=== PATIENT | female | born 1970 | race Caucasian/White ===

== ENCOUNTER 2018-06-02 06:24 | Observation (INO) ==
--- NOTE | 2018-05-13 11:58 | Anesthesiology Consultation ---
Date of Service May 13, 2018 Assessment & Plan (1) Encounter for pre-operative examination: *BASED ON EXAM AT [facility], LIKELY VERY DIFFICULT INTUBATION. PT CAN OPEN MOUTH TO ONLY ~2-3 CM BETWEEN UPPER AND LOWER TEETH. PT TO F/U WITH ORAL SURGEON ON 05/28. REEVALUATE TRISMUS AM DOS* *PT TO HAVE ROOT CANAL PRIOR TO SURGERY ON PREVIOUSLY ABSCESSED TOOTH. SURGEON AWARE AND OK TO PROCEED.* Chart Review Chart Review: Acceptable Risk for Surgery and Patient seen in Pre Admission Testing Teaching & Discussion Instructed NPO after midnight before surgery, except medications with 15 cc of water. Medication instructions provided according to the [facility] guidelines. History Surgery Operation Date: 06/02/18 07:30 Proposed Procedures p Robotic Total Laparoscopic Hysterectomy - Adela Turner MD, FACOG Height/Weight Height: 5 ft 6 in Weight: 72.5 kg Allergies Allergy/AdvReac Type Severity Reaction Status Date / Time No Known Allergies Allergy Unknown Verified 05/08/18 11:50 Dust Allergy Mild Uncoded 05/08/18 11:50 Medications Home Medications Medication Instructions Recorded Confirmed Last Taken levothyroxine [Synthroid] 125 mcg PO QAM 05/08/18 05/08/18 Unknown multivitamin with iron 1 tab PO QAM 05/08/18 05/08/18 Unknown venlafaxine [Effexor XR] 75 mg PO QAM 05/08/18 05/08/18 Unknown Past Medical History Medical History Palpitations (Acute) 2014 Holter Monitor by PCP showed "dominant rhythm is sinus rhythm with intermittent bigeminy and trigeminy. Frequent PVCs, representing 7% of all QRS complexes." Patient subsequently evaluated by cardiology and given the scarcity of her symptoms elected to forgo any treatment at the time. Abnormal liver function tests CHRONIC; REASON UNK Anxiety Asthma DOES NOT USE INH Depression History of abscessed tooth 2/2 ROOT CANAL. TREATED W/ ABX AND I+D PROCEDURE 04/30/2018. PERSISTENT TRISMUS. Hypothyroidism Iron deficiency anemia Has been following with PCP, on ferrous sulfate and had IV Fe infusion, having heavy vaginal bleeding. Leukopenia PCP aware and monitoring PVCs (premature ventricular contractions) Frequent, with intermittent bi and trigeminy, per 2014 Holter. Pt has only occasional palpitations. Temporomandibular joint disorder Pt had root canal and subsequent dental abscess over the past couple weeks--since having abscess drained can barely open her mouth. Pt is to return to oral surgeon on 05/28, will discuss muscle relaxer or therapeutic intervention at that time if not improved. Uterine fibroid Varicose vein of leg Past Surgical History Surgical History History of History of colonoscopy History of esophagogastroduodenoscopy (EGD) History of tooth extraction History of tubal ligation Past Anesthesia History No Hx of Anesthesia Complications and No Family Hx of Anesthesia Complications History of PONV No Motion Sickness Screening History of Motion Sickness: No Social History Smoking Status: Former smoker Do You Dip or Chew Tobacco: No Smoking End Date: QUIT > 20 YEARS AGO Hx Alcohol Use: Yes Alcohol type: beer and wine Alcohol Intake Frequency Comment: ONCE PER MONTH Hx Substance Use: No substance use type: does not use Exercise / Class Metabolic Activity II 4-5 Yardwork/Stairs/Walk up hill (denies CP or SOB with stairs) Review of Systems Pt denies any recent chest pain, shortness of breath, palpitations, cough, fever or URI. +abscessed tooth from root canal, was on Clindamycin x 10 days, still has significant jaw pain and cannot open mouth fully. Physical Exam Vital Signs BP: 101/65 P: 61bpm SPO2: 99% RA T: 98.7 F R: 12 ENMT Mouth: + small oral opening (VERY narrow opening 2/2 trismus); no dental restorations, no chipped teeth and no loose teeth Thyromental Distance: < 3.5 Finger Breadths (2) Mallampati Class: III Neck + shortened thyromental distance; neck extension not limited Respiratory normal respiratory effort Auscultation: lungs clear to auscultation bilaterally Cardiovascular Rate/Rhythm: regular rate; + abnormal rhythm (ectopic beats vs sinus arrhythmia?) Heart Sounds: no murmur Extremities: no edema Testing Electrocardiogram Date: 05/13/18 Findings: + NSR @ (63, with frequent PVCs.) Right axis deviation. Possible anterior infarct, age undetermined. *pt does have large pendulous breasts possibly interfering with EKG tracing. Good functional status, no cardiopulmonary complaints. Laboratory Results 05/13/18 12:13 05/13/18 12:13 Blood Type O Negative 05/13/18 12:13 Antibody Screen NEGATIVE 05/13/18 12:13
--- NOTE | 2018-05-13 12:09 | PAT Medication Instructions ---
Medication Instructions Date of Service May 13, 2018 Home Medications levothyroxine [Synthroid] 125 mcg PO QAM multivitamin with iron 1 tab PO QAM venlafaxine [Effexor XR] 75 mg PO QAM DO NOT take the morning of surgery multivitamin with iron 1 tab PO QAM Take morning of surgery With a small sip of water, OTHERWISE NOTHING TO EAT OR DRINK AFTER MIDNIGHT: levothyroxine [Synthroid] 125 mcg PO QAM venlafaxine [Effexor XR] 75 mg PO QAM Other Notes If you have any questions please call us at [phone] or [phone] or [phone] or [phone]
[2018-05-13 12:48] LABS: Basophils # (auto) 0.01 K/uL (0-0.2); Basophils % (auto) 0.4 %; Hematocrit (blood only) 29.7 % (37-47); Hemoglobin 9.6 g/dL (12.0-16.0); Lymphocytes # (auto) 1.02 K/uL (1.2-3.4); Lymphocytes % (auto) 44.3 %; Mean Corpuscular Hgb Conc 32.3 g/dL (32-36); Mean Corpuscular Volume 86.6 fL (80-100); Mean Platelet Volume 10.4 fL (7.4-10.4); Monocytes # (auto) 0.24 K/uL (0.11-0.59); Monocytes % (auto) 10.4 %; Neutrophils # (auto) 1.03 K/uL (1.4-6.5); Neutrophils % (auto) 44.9 %; Platelet Count 211 K/uL (130-400); RDW Coefficient of Variation 17.2 % (11.5-14.5); RDW Standard Deviation 54.5 fL (36.4-46.3); Red Blood Count 3.43 M/uL (4.2-5.4)
[2018-05-13 13:33] LABS: Calcium 8.7 mg/dl (8.5-10.1); Creatinine Clr Calc Pharmacy 104.3 ml/min; Est GFR (African American) 120.7; Est GFR (Non-African American) 104.2
[~2018-06-02 06:24] MED LIST: CEFAZOLIN 2000MG 2,000 MG/15 ML SYR IV SCH; LACTATED RINGER'S 1,000 ML IV SCH; LR 15ML/HR IV SCH; LR 500ML BOLUS, THEN 15ML/HR IV SCH
[2018-06-02] MEDS ORDERED: BUPIVACAINE 0.5 % 5 MG/1 ML MPF 30ML VIAL ONE (07:00)
[2018-06-02] MEDS ORDERED: CISATRACURIUM BESYLATE IV SOLN 2 MG/ML 10 ML VIAL IV ONE (07:02)
[2018-06-02] MEDS ORDERED: LARYING-O-JET KIT (LTA) ONE (07:02)
[2018-06-02] MEDS ORDERED: LIDOCAINE HCL 2% 2 ML VIAL/AMP(20MG/ML) INFIL ONE (07:02)
[2018-06-02] MEDS ORDERED: ePHEDrine sulfate 50 MG/ML SYR ONE (07:02)
[2018-06-02] MEDS ORDERED: GLYCOPYRROLATE 0.2 MG/ML VIAL ONE (07:02)
[2018-06-02] MEDS ORDERED: PHENYLEPHRINE 100MCG/ML 5ML SYR ONE (07:02)
[2018-06-02] MEDS ORDERED: ONDANSETRON INJ 2 MG/ML 2 ML VIAL ONE (07:02)
[2018-06-02] MEDS ORDERED: PROPOFOL IV EMULSION 10 MG/ML 20 ML VIAL IV ONE (07:02)
[2018-06-02] MEDS ORDERED: NEOSTIGMINE METHYLSULFATE 5 MG/5 ML SYR ONE (07:02)
[2018-06-02] MEDS ORDERED: DEXAMETHASONE SOD INJ 4 MG/ML VIAL ONE (07:02)
[2018-06-02] MEDS ORDERED: fentaNYL citrate 100 MCG/2 ML VIAL ONE (07:03)
[2018-06-02] MEDS ORDERED: MIDAZOLAM HCL 1 MG/ML 2ML VIAL ONE (07:03)
--- NOTE | 2018-06-02 07:04 | History & Physical Bridge Note ---
Date of Service June 02, 2018 History & Physical Bridge Note I have examined the patient, reviewed the History & Physical and in the interval since the performance of the History & Physical I have noted the following changes of clinical significance: no changes noted
[2018-06-02] MEDS ORDERED: KETOROLAC 30 MG/ML VIAL ONE (08:17)
[2018-06-02] MEDS ORDERED: ATROPINE SULFATE 0.1 MG/ML 10ML SYR IV PRN (09:06)
[2018-06-02] MEDS ORDERED: ONDANSETRON INJ 2 MG/ML 2 ML VIAL IV PRN ×2 (09:06→09:42)
[2018-06-02] MEDS ORDERED: FLUMAZENIL 0.1 MG/1 ML 10 ML VIAL IV PRN (09:06)
[2018-06-02] MEDS ORDERED: PROMETHAZINE HCL 12.5 MG in SODIUM CHLORIDE 0.9% 50 ML IV PRN ×2 (09:06→09:42)
[2018-06-02] MEDS ORDERED: ePHEDrine sulfate 50 MG/ML AMP IV PRN (09:06)
[2018-06-02] MEDS ORDERED: NALOXONE HCL 0.4 MG/1 ML VIAL/CARP IV PRN (09:06)
[2018-06-02] MEDS ORDERED: HYDROmorphone INJ 1 MG/ML SYRINGE IV PRN (09:06)
[2018-06-02] MEDS ORDERED: LABETALOL HCL IV 5 MG/ML 20ML IV PRN (09:06)
[2018-06-02] MEDS: METHYLENE BLUE 0.5% 10 ML VIAL ONE ×2 (09:08→09:12)
[2018-06-02] MEDS ORDERED: TISSEEL FIBRIN SEALANT 4ML TOP ONE (09:26)
[2018-06-02] MEDS ORDERED: ACETAMINOPHEN 325 MG TAB PO PRN (09:42)
[2018-06-02] MEDS ORDERED: ZOLPIDEM TARTRATE 5 MG TAB PO PRN (09:42)
[2018-06-02] MEDS ORDERED: KETOROLAC 30 MG/ML VIAL IV PRN (09:42)
[2018-06-02] MEDS ORDERED: MEPERIDINE HCL 50 MG/ML CARP IV PRN (09:42)
[2018-06-02] MEDS ORDERED: BISACODYL 10 MG SUPP PR PRN (09:42)
[2018-06-02] MEDS ORDERED: OXYCODONE/ACETAMINOPHEN 5mg/325mg TAB PO PRN ×2 (09:42)
[2018-06-02] MEDS ORDERED: MAGNESIUM HYDROXIDE SUSP 30 ML UDC PO PRN (09:42)
--- NOTE | 2018-06-02 09:49 | Post Operative Brief Note ---
Immediate Post Op Note v1 Date of Surgery June 02, 2018 Pre & Post Diagnosis Operation Date: 06/02/18 07:30 Pre-Op Diagnosis: Menorrhagia, Abnormal Menses Post-Op Diagnosis: Menorrhagia, Abnormal Menses Procedure Operation Date: 06/02/18 07:30 Actual Procedures p Robotic Total Laparoscopic Hysterectomy, Bilateral Salpingectomy, Cystoscopy - Adela Turner MD, FACOG Surgeon Adela Turner MD, FACOG Blue Line Trimmer Yamila Estimated Blood Loss 20 Findings Consistent with Post-Op Diagnosis Drains Carlin Catheter (Inserted during procedure by Dr. Turner.)
--- NOTE | 2018-06-02 10:27 | Operative Report ---
Post Operative Report Pre & Post Diagnosis Operation Date: 06/02/18 07:30 Pre-Op Diagnosis: Menorrhagia, Abnormal Menses Post-Op Diagnosis: Menorrhagia, Abnormal Menses Procedure Operation Date: 06/02/18 07:30 Actual Procedures p Robotic Total Laparoscopic Hysterectomy, Bilateral Salpingectomy, Cystoscopy - Adela Turner MD, FACOG Surgeon Adela Turner MD, FACOG Jewel Bearing Broacher Yamila Estimated Blood Loss 20 Findings Consistent with Post-Op Diagnosis Specimens Uterus cervix bilateral fallopian tubes Description of Procedure Patient was given a general anesthetic prepped and draped in dorsal lithotomy position in [facility] stir[facility] bladder drained with Carlin catheter V care inserted into her cervix glove change and a supraumbilical incision made with scalpel using Dallas technique we did a direct cutdown into the peritoneal cavity there were some adhesions around the umbilicus I was able to get a a 12 mm Dallas port blunt into the umbilicus at that stage it was then able to placed a 8mm Port on the left side. I was also able to place the 11 mm millimeters blade less port on the left side using the harmonic scalpel was able to lyse the adhesions. At this stage II ports were then placed on the right side robotic. We then were able to dock the robot after deep Trendelenburg position Findings adhesions at the bladder flap as expected some adhesions of the omentum to the uterus and left adnexa otherwise normal anatomy with an enlarged uterus Robot was docked on #1 was monopolar kimmie in arm #2 was the bipolar [place] arm #3 was the pro-grasp procedure was begun by manipulating the uterus with the V care identifying adhesions on the uterus and left side these were lysed away ureter was identified on the left side and then we made coagulation distal to the ovary with the bipolar [place] this was then cut with monopolar kimmie round ligament was coagulated and cut as well uterine vessels skeletonized bladd er flap was sharply dissected away and then was able to coagulate and cut the uterine vessels on the left side we were well away from the left ureter The exact same process was continued on the right side once both uterine vessels were ligated and cut I made an anterior colpotomy and then completed the colpotomy with the monopolar kimmie uterus was then pulled into the vagina to maintain pneumoperitoneum Instruments were exchanged for #1 became the negative needle commercial collections driver arm #2 became the Apparity grasper 12 inch 2 oh 90-day V lock suture passed to the accessory port cuff was closed from left to right back right to left taking at least 1 cm full-thickness bites suture was cut to the was no tail need to remove the excess report after generous irrigation and suction there was no active bleeding 4 mL of Tisseel applied to the pedicles. Cystoscopy was performed initially without methylene blue I was able to see a ureter jet on the left side we then actually had to add methylene blue as I was unable to see on the right once at methylene blue was given intravenously was easy to see a good strong [place] blue dye from the right ureter opening no damage to the bladder no sutures visualized cystoscope removed and a new Carlin catheter placed uterus had been removed from the vagina already at this stage and instrument removed the robot undocked gas allowed to escape and incisions injected with 0.5% Marcaine fascia closed with 0 Vicryl in the umbilical and left upper quadrant incisions 4 oh septic or Monocryl and Dermabond sponge and inspect counts correct I attest to the content of the Intraoperative Record and any orders documented therein. Any exceptions are noted below.
--- NOTE | 2018-06-02 10:38 | Anesthesiology Progress Note ---
Date of Service June 02, 2018 Anesthesia Post Procedure Vital Signs Vital Signs: Temp Pulse Pulse Resp BP BP Pulse Ox 06/02/18 10:30 36.1 C L 69 18 114/63 97 06/02/18 10:20 78 18 119/77 100 06/02/18 10:10 79 15 111/80 100 06/02/18 10:00 70 20 111/68 100 06/02/18 09:51 36.0 C L 97 H 14 119/78 100 06/02/18 06:37 36.4 C L 74 16 106/73 100 Pain Intensity Abdomen: Pain Intensity: 2 Notes Mental Status: alert / awake / arousable Patient Amnestic to Procedure: Yes Nausea / Vomiting: adequately controlled Pain: adequately controlled Airway Patency, RR, SpO2: stable & adequate BP & HR: stable & adequate Hydration State: stable & adequate Anesthetic Complications: no major complications apparent
[2018-06-02] MEDS: LACTATED RINGER'S 1,000 ML IV SCH (11:14)
[2018-06-02] MEDS ORDERED: SIMETHICONE 80 MG CHEW PO PRN (11:15)
[2018-06-02] MEDS: IBUPROFEN 600 MG TAB PO PRN (19:15)
[2018-06-02 20:40] LABS: Hematocrit (blood only) 24.8 % (37-47); Hemoglobin 8.1 g/dL (12.0-16.0)
[2018-06-02] MEDS: DOCUSATE SODIUM 100 MG CAP PO SCH (21:02)
[2018-06-03] MEDS: IBUPROFEN 600 MG TAB PO PRN ×2 (01:56→07:29)
[2018-06-03] MEDS: LACTATED RINGER'S 1,000 ML IV SCH (04:24)
[2018-06-03 06:52] LABS: Basophils # (auto) 0.01 K/uL (0-0.2); Basophils % (auto) 0.2 %; Hematocrit (blood only) 22.6 % (37-47); Hemoglobin 7.4 g/dL (12.0-16.0); Lymphocytes # (auto) 1.23 K/uL (1.2-3.4); Lymphocytes % (auto) 26.3 %; Mean Corpuscular Hgb Conc 32.7 g/dL (32-36); Mean Platelet Volume 9.7 fL (7.4-10.4); Monocytes # (auto) 0.48 K/uL (0.11-0.59); Monocytes % (auto) 10.3 %; Neutrophils # (auto) 2.96 K/uL (1.4-6.5); Neutrophils % (auto) 63.2 %; Platelet Count 142 K/uL (130-400); RDW Coefficient of Variation 14.9 % (11.5-14.5); RDW Standard Deviation 46.9 fL (36.4-46.3); Red Blood Count 2.66 M/uL (4.2-5.4); White Blood Count 4.68 K/uL (4.8-10.8)
[2018-06-03 07:25] LABS: RBC Morphology Unremarkable
[2018-06-03] MEDS: DOCUSATE SODIUM 100 MG CAP PO SCH (07:29)
--- NOTE | 2018-06-03 07:44 | Anesthesiology Progress Note ---
Date of Service June 03, 2018 Anesthesia Post Procedure Vital Signs Vital Signs: Temp Pulse Pulse Resp BP Pulse Ox 06/03/18 03:50 36.8 C 90 18 91/61 L 99 06/02/18 19:19 36.4 C L 79 18 100/66 98 06/02/18 17:00 36.5 C 86 18 98/62 L 99 06/02/18 14:00 36.3 C L 85 16 90/61 L 100 06/02/18 13:00 36.4 C L 89 18 107/71 100 06/02/18 12:00 36.3 C L 84 16 96/64 L 99 06/02/18 11:38 36.7 C 84 18 91/51 L 98 06/02/18 11:30 36.3 C L 93 H 16 94/62 L 97 06/02/18 11:00 36.3 C L 82 18 111/68 96 06/02/18 10:40 61 17 119/84 100 06/02/18 10:30 36.1 C L 69 18 114/63 97 06/02/18 10:20 78 18 119/77 100 06/02/18 10:10 79 15 111/80 100 06/02/18 10:00 70 20 111/68 100 06/02/18 09:51 36.0 C L 97 H 14 119/78 100 Pain Intensity Abdomen: Pain Intensity: 3 Notes Mental Status: alert / awake / arousable and participated in evaluation Patient Amnestic to Procedure: Yes Nausea / Vomiting: adequately controlled Pain: adequately controlled Airway Patency, RR, SpO2: stable & adequate BP & HR: stable & adequate Hydration State: stable & adequate Anesthetic Complications: no major complications apparent
--- NOTE | 2018-06-03 08:47 | Obstetrical Progress Note ---
Date of Service June 03, 2018 Assessment & Plan (1) S/P hysterectomy: POD#1 doing well, desires discharge. Reviewed discharge instructions, patient will take iron. RTO 2w in office with Dr Turner. Subjective POD#1 s/p RALH. Doing well. Had some episodes of dizziness yesterday evening, this has resolved with ambulation overnight. Eating/drinking well. Scant vaginal bleeding. Pain controlled. Physical Exam Vital Signs (Past 24 Hours): Last Vital Signs Temp 36.7 C 06/03/18 07:30 Pulse 81 06/03/18 07:30 Resp 18 06/03/18 07:30 BP 102/64 06/03/18 07:30 Pulse Ox 98 06/03/18 07:30 Physical Exam: Gen AAOx3 NAD CV RRR L CTAB Abd soft NTTP nondistended. some bruising at incisions. CDI Ext no edema
--- NOTE | 2018-06-04 19:34 | Discharge Summary ---
Date of Service June 04, 2018 Patient had a total laparoscopic hysterectomy on June 02 for severe menorrhagia and anemia on postop day #1 she met discharge criteria at that time she was ambulating passing gas pain was well controlled and she had no lightheadedness which should be noted she was anemic prior to surgery and her hemoglobin was seven-point 4 in the morning discharge instructions were reviewed by my partner patient was given prescriptions and told to follow-up in the office with Dr. Turner Admission Exam (Per Admitting) Constitutional WD/WN, vitals as above Cardiovascular RRR, no murmur, no edema Gastrointestinal (Abdomen) normal bowel sounds, soft, nontender, no hepatosplenomegaly Genitourinary normal external appearance Discharge Data Procedures Performed Operation Date: 06/02/18 07:30 Actual Procedures p Robotic Total Laparoscopic Hysterectomy, Bilateral Salpingectomy - Adela Turner MD, FACOG s Cystoscopy(Not Applicable) - Adela Turner MD, FACOG Hospital Course (1) S/P hysterectomy:
== END 2018-06-03 10:25 | disposition home or self-care (01) ==
LOC: ASU 06:24 → INTOOBSV 10:59 → 4N 10:59